=== PATIENT | male | born 1990 | race Caucasian/White ===

== ENCOUNTER 2017-06-24 18:15 | Emergency (ER) | payer SELFPAY, OTHER | END 2017-06-24 19:23 | disposition home or self-care (01) | LOC: ER 19:23 | DX: K04.7 Periapical abscess without sinus (principal); K02.9 Dental caries, unspecified; F17.200 Nicotine dependence, unspecified, uncomplicated; Z88.6 Allergy status to analgesic agent | CPT/HCPCS: 99283 ==

== ENCOUNTER 2017-10-09 15:09 | Emergency (ER) | payer OTHER | END 2017-10-09 16:01 | disposition home or self-care (01) | LOC: ER 15:09 | DX: K04.7 Periapical abscess without sinus (principal); K08.89 Other specified disorders of teeth and supporting structures; Z88.6 Allergy status to analgesic agent | CPT/HCPCS: 99283 ==